=== PATIENT | female | born 1945 | race Caucasian/White ===

== ENCOUNTER 2020-12-26 14:31 | Emergency (ER) | payer MEDICARE ==
[2020-12-26 14:52] VITALS: BP 131/65
--- NOTE | 2020-12-26 15:24 | XRAY Report ---
PROCEDURE: Foot 3 View RT INDICATIONS: Trauma TECHNIQUE: 3 views of the foot were acquired. COMPARISON: None. FINDINGS: Charcot deformity of the right midfoot with destructive and degenerative posttraumatic and postsurgic al changes. There is no acute fracture identified, although it should be noted that the anatomy is si gnificantly altered and standard views are not entirely adequate. A subtle fracture cannot be strictl y excluded. There appears to be a screw in improper position, not projecting within a bone and locate d within the soft tissues overlying the dorsal third metatarsal. IMPRESSION: No evidence of fracture. There appears to be a screw in improper position, not projecting within a bone and located within the soft tissues overlying the dorsal third metatarsal. This is of unknown acuity and clinical significa nce. Reviewed by: Michi Casillas MD on 12/26/2020 3:23 PM PDT Approved by: Michi Casillas MD on 12/26/2020 3:23 PM PDT Station ID: [id number]
--- NOTE | 2020-12-26 16:42 | ED Physician Documentation ---
History of Present Illness - Stated complaint Stated Complaint: RT FT PX - Chief complaint Chief Complaint: Ext Problem - History obtained from History obtained from: Patient - Additonal information Additional information: Pt presented with pain in the right foot. She has long standing history of right foot problems including prior fracture w/ ORIF and charcot foot, but pain typically well managed. She had increased pain about 2 weeks ago and was seen by her assistant professor of dietetics in [facility]. She had a steroid inj into the right ankle. The pain did not improve so she was seen by her PCP who gave her vicodin. She states this has not helped at all. She has had ongoing pain making it difficult to ambulate, which she can normally do despite her charcot foot. She reported swelling which has actually improved over the last couple of days w/ elevation. There has not been any erythema and she has not had any fever or systemic sx. Review of Systems Ten Systems: 10 systems reviewed and negative Constitutional: reports: Reviewed and negative Eyes: reports: Reviewed and negative Ears: reports: Reviewed and negative Nose: reports: Reviewed and negative Throat: reports: Reviewed and negative Cardiac: reports: Reviewed and negative Respiratory: reports: Reviewed and negative GI: reports: Reviewed and negative : reports: Reviewed and negative Skin: reports: Reviewed and negative Musculoskeletal: reports: Extremity pain, Extremity swelling, Joint swelling, Pain with weight bearing Neurologic: reports: Reviewed and negative Psychiatric: reports: Reviewed and negative Endocrine: reports: Reviewed and negative Immunocompromised: reports: Reviewed and negative PD PAST MEDICAL HISTORY - Past Medical History Past Medical History: Yes - Past Surgical History Past Surgical History: Yes /[employer]: Hysterectomy - Present Medications Home Medications: Ambulatory Orders Medication Instructions Recorded Confirmed Acetaminophen with Codeine 1 tab 12/08/14 12/08/14 [Tylenol with Codeine #4 Tablet] Levothyroxine [Synthroid] 150 mcg 12/08/14 12/08/14 Melatonin 1 mg 12/08/14 12/08/14 Meloxicam 15 mg 12/08/14 12/08/14 Omeprazole [PriLOSEC] 20 mg 12/08/14 12/08/14 Oxycodone HCl/Acetaminophen 1 - 2 each PO Q6H PRN #20 tablet 12/08/14 [Percocet 5-325 mg Tablet] Pramipexole [Mirapex] 0.5 mg 12/08/14 12/08/14 Propranolol [Inderal] 20 mg 12/08/14 12/08/14 oxyCODONE [Roxicodone] 5 mg PO Q6H PRN #12 tablet 12/26/20 - Allergies Allergies/Adverse Reactions: Allergies Allergy/AdvReac Type Severity Reaction Status Date / Time Sulfa (Sulfonamide Allergy Rash Verified 12/26/20 14:50 Antibiotics) - Social History Does the pt smoke?: No Smoking Status: Never smoker Does the pt drink ETOH?: Yes Does the pt have substance abuse?: No - Immunizations Immunizations are current?: Yes PD ED PE NORMAL - Vitals Vital signs reviewed: Yes - General General: Alert and oriented X 3, No acute distress, Well developed/nourished - HEENT HEENT: Atraumatic, Moist mucous membranes - Cardiac Cardiac: RRR, No murmur - Respiratory Respiratory: No respiratory distress, Clear bilaterally - Abdomen Abdomen: Normal bowel sounds, Soft, Non tender, Non distended - Derm Derm: Normal color, Warm and dry, No rash - Extremities Extremities: Other (right charcot foot w/ collapsed arch and deformity of the midfoot. Tenderness localized to medial malleolus of the right foot, no redness or obvious swelling. No calf pain or fullness. 2+ pedal pulses w/ brisk cap ref ill. ) - Neuro Neuro: Alert and oriented X 3, No motor deficit, No sensory deficit, Normal speech Eye Opening: Spontaneous Motor: Obeys Commands Verbal: Oriented GCS Score: 15 - Psych Psych: Normal mood, Normal affect Results - Vitals Vitals: Vital Signs - 24 hr 12/26/20 14:50 Temperature 37.0 C Heart Rate 71 Respiratory 18 Rate Blood Pressure 131/65 H O2 Saturation 97 Oxygen O2 Source Room air PD MEDICAL DECISION MAKING - ED course Complexity details: reviewed results, re-evaluated patient, considered differential, d/w patient ED course: 75 yo F w/ right charcot foot presented after increased right foot/ankle pain. No obvious injury or signs of infection on physical exam. She has chronic deformity of the foot. An xray was obtained which showed no obvious injury at the site of pain, but is difficult to read due to her atypical anatomy. There is a possible malpositioned screw however she had no pain at that site and thus is likely not of clinical relevance today. I suspect this is acute on chronic pain 2/2 to her charcot foot and arthritis and will treat supportively with cool compress, limited weight bearing, and prn pain control. I have advised pt to follow up w/ her assistant professor of dietetics if there is no improvement as she may benefit from custom walking boot or other assistive device or other speciality intervention given her severe charcot deformity. Return precautions reviewed w/ pt including erythema, fever, increased swelling or otherwise new concerns. Departure - Departure Disposition: 01 Home, Self Care Clinical Impression: Pain of lower extremity Condition: Good Prescriptions: oxyCODONE [Roxicodone] 5 mg PO Q6H PRN #12 tablet PRN Reason: Pain Comments: Please schedule a follow up with your assistant professor of dietetics. Continue supportive measures including limited weight bearing, cool or warm compress, and tylenol as needed. I have prescribed oxycodone for you to take only if necessary. This is in place of your hydrocodone as that doesn't seem to work for you. DO NOT TAKE BOTH. These are narcotic pain medications and are habit forming and can suppress respiratory drive. They should not be used while driving or operating machinery. Discharge Date/Time: 12/26/20 16:55
== END 2020-12-26 16:55 | disposition home or self-care (01) ==
LOC: ED 14:31
DX: M79.671 Pain in right foot (principal)
CPT/HCPCS: 99283